=== PATIENT | male | born 1995 | race Caucasian/White ===

== ENCOUNTER 2017-11-03 05:00 | Emergency (ER) | payer OTHER ==
[2017-11-03 05:06] VITALS: BP 133/87; PULSE 58; RESP 16; TEMP 97.6
[2017-11-03] MEDS ORDERED: PENICILLIN VK 500MG STARTER 4 TAB BTL PO STA (05:11)
[2017-11-03] MEDS ORDERED: Acetaminophen-Codeine 300-30mg TAB PO STA (05:11)
[2017-11-03] MEDS ORDERED: PENICILLIN V POTASSIUM 250 MG TAB PO STA (05:11)
[2017-11-03] MEDS ORDERED: IBUPROFEN 800 MG TAB PO STA (05:11)
--- NOTE | 2017-11-03 05:16 | ED ---
General Adult HPI - General Chief complaint: ENT Stated complaint: dental pain Time Seen by Provider: 11/03/17 05:11 Source: patient, RN notes reviewed, old records reviewed Mode of arrival: ambulatory Limitations: no limitations - History of Present Illness Initial comments: This is a 22-year-old male the ER for evaluation of tooth pain. Left-sided tooth pain. Left rear lower tooth pain. Patient has history of dental caries and abscesses. Patient states he has severe left lower tooth pain, he does grind his teeth and his sleep he does have a cavity back there and he did notice his tooth cracking. Patient denies any other complaints. No other issues. - Related Data Previous Rx's Medication Instructions Recorded Acetaminophen with Codeine 1 tab PO Q4H PRN #20 tab 11/03/17 [Tylenol w/codeine #3] Naproxen [Naprosyn] 500 mg PO Q12HR PRN #30 tab 11/03/17 Penicillin V Potassium [Pen Vee K] 500 mg PO QID #40 tablet 11/03/17 Allergies Allergy/AdvReac Type Severity Reaction Status Date / Time No Known Allergies Allergy Verified 11/03/17 05:05 Review of Systems ROS Statement: Those systems with pertinent positive or pertinent negative responses have been documented in the HPI. ROS Other: All systems not noted in ROS Statement are negative. Past Medical History Past Medical History: No Reported History History of Any Multi-Drug Resistant Organisms: None Reported Past Surgical History: Tonsillectomy Past Psychological History: No Psychological Hx Reported Smoking Status: Never smoker Past Alcohol Use History: None Reported Past Drug Use History: None Reported General Exam Limitations: no limitations General appearance: alert, in no apparent distress Head exam: Present: atraumatic, normocephalic, normal inspection Eye exam: Present: normal appearance, PERRL, EOMI. Absent: scleral icterus, conjunctival injection, periorbital swelling ENT exam: Present: normal exam, mucous membranes moist, other (Significant dental caries with left tooth fracture left lower rear) Neck exam: Present: normal inspection. Absent: tenderness, meningismus, lymphadenopathy Respiratory exam: Present: normal lung sounds bilaterally. Absent: respiratory distress, wheezes, rales, rhonchi, stridor Cardiovascular Exam: Present: regular rate, normal rhythm, normal heart sounds. Absent: systolic murmur, diastolic murmur, rubs, gallop, clicks GI/Abdominal exam: Present: soft, normal bowel sounds. Absent: distended, tenderness, guarding, rebound, rigid Extremities exam: Present: normal inspection, full ROM, normal capillary refill. Absent: tenderness, pedal edema, joint swelling, calf tenderness Back exam: Present: normal inspection Neurological exam: Present: alert, oriented X3, CN II-XII intact Psychiatric exam: Present: normal affect, normal mood Skin exam: Present: warm, dry, intact, normal color. Absent: rash Course Vital Signs 11/03/17 05:02 Temperature 97.6 F Pulse Rate 58 L Respiratory 16 Rate Blood Pressure 133/87 O2 Sat by Pulse 100 Oximetry - Reevaluation(s) Reevaluation #1: 11/03/17 05:14 Pain control Medical Decision Making - Medical Decision Making 22 male to the ER for evaluation of left lower tooth pain. Patient has dental fracture with dental pain. Patient can be discharged home Disposition Clinical Impression: Dental caries, Dental abscess Narrative: left lower rear tooth abscess Disposition: HOME SELF-CARE Condition: Good Instructions: Dental Abscess (ED) Prescriptions: Acetaminophen with Codeine [Tylenol w/codeine #3] 1 tab PO Q4H PRN #20 tab PRN Reason: Pain Naproxen [Naprosyn] 500 mg PO Q12HR PRN #30 tab PRN Reason: Pain Penicillin V Potassium [Pen Vee K] 500 mg PO QID #40 tablet Referrals: None,Stated [Primary Care Provider] - 1-2 days
== END 2017-11-03 05:25 | disposition home or self-care (01) ==
LOC: EC 05:00
DX: K02.9 Dental caries, unspecified (principal); K04.7 Periapical abscess without sinus
CPT/HCPCS: 99283

== ENCOUNTER 2019-08-10 08:47 | Emergency (ER) | payer OTHER ==
[2019-08-10 08:55] VITALS: TEMP 98.4
--- NOTE | 2019-08-10 09:05 | ED ---
Upper Extremity HPI - General Chief Complaint: Extremity Injury, Upper Stated Complaint: IHS-Swollen hand Time Seen by Provider: 08/10/19 08:59 Source: patient, RN notes reviewed, old records reviewed Mode of arrival: ambulatory Limitations: no limitations - History of Present Illness Initial Comments: Patient is a 24-year-old male presents emergency department today with chief complaint of right hand pain. Patient reports that he smashed his right hand between holding apart and a holding rack at work last night. Patient reports that he has pain over the fifth metaherbal. Patient reports he has normal sensation. He does report some bruising noted at this time. Patient is right- handed.Patient denies any recent fever, chills, shortness of breath, chest pain, back pain, abdominal pain, nausea vomiting, numbness or tingling, dysuria or hematuria, constipation or diarrhea, headaches or visual changes, or any other current symptoms - Related Data Previous Rx's Medication Instructions Recorded Acetaminophen with Codeine 1 tab PO Q4H PRN #20 tab 11/03/17 [Tylenol w/codeine #3] Naproxen [Naprosyn] 500 mg PO Q12HR PRN #30 tab 11/03/17 Penicillin V Potassium [Pen Vee K] 500 mg PO QID #40 tablet 11/03/17 Ibuprofen [Motrin] 600 mg PO Q8HR PRN #30 tab 08/10/19 Allergies Allergy/AdvReac Type Severity Reaction Status Date / Time No Known Allergies Allergy Verified 11/03/17 05:05 Review of Systems ROS Statement: Those systems with pertinent positive or pertinent negative responses have been documented in the HPI. ROS Other: All systems not noted in ROS Statement are negative. Past Medical History Past Medical History: No Reported History History of Any Multi-Drug Resistant Organisms: None Reported, MRSA Date of last positivie culture/infection: L arm MDRO Source:: 2006 Past Surgical History: Tonsillectomy Past Psychological History: No Psychological Hx Reported Smoking Status: Never smoker Past Alcohol Use History: Occasional Past Drug Use History: None Reported General Exam - General Exam Comments Initial Comments: Pleasant 24-year-old male. No significant distress. Limitations: no limitations General appearance: alert, in no apparent distress Head exam: Present: atraumatic, normocephalic, normal inspection Eye exam: Present: normal appearance ENT exam: Present: normal exam, mucous membranes moist Neck exam: Present: normal inspection. Absent: tenderness, meningismus, lymphadenopathy Respiratory exam: Present: normal lung sounds bilaterally. Absent: respiratory distress, wheezes, rales, rhonchi, stridor Cardiovascular Exam: Present: regular rate GI/Abdominal exam: Present: soft, normal bowel sounds. Absent: distended, t enderness, guarding, rebound, rigid Right Forearm Wrist exam: Present: normal inspection, full ROM Hand Wrist exam: Present: full ROM, tenderness, swelling (Tenderness and swelling over the distal fifth metacarpal. Full range of motion of the fifth digit.), ecchymosis (Over distal fifth metacarpal.). Absent: normal inspection Neuro motor exam: Present: wrist extension intact, thumb opposition intact, thumb IP flexion intact, thumb adduction intact, fingers 2-5 abduction intact Vascular: Present: normal capillary refill Psychiatric exam: Present: normal affect, normal mood Skin exam: Present: warm, dry, intact, normal color. Absent: rash Course Vital Signs 08/10/19 08:51 Temperature 98.4 F Pulse Rate 66 Respiratory 18 Rate Blood Pressure 125/74 O2 Sat by Pulse 100 Oximetry Procedures - Orthopedic Splinting/Casting Injury #1 Side: right Upper Extremity Injury Location: hand Upper Extremity Immobilizer: Chase wrap Medical Decision Making - Medical Decision Making 24-year-old male presents today for evaluation for right hand injury last night at work. He has swelling and redness and contusion over the right fifth metacarpal. He does have full range of motion sensation in the finger and hand. At this time patient's x-ray of the hand was reviewed and negative for any acute process. No fracture. Discussed likely contusion and sprain. Discussed Patient can have Chase wrap is inflammatory medicine for pain. Discussed following up with orthosis symptoms continue to persist. All questions were answered and return parameters were discussed. - Radiology Data Radiology results: report reviewed X-rays negative for any acute osseous lesion. This was read by Dr. Marrero. Disposition Clinical Impression: Hand contusion Disposition: HOME SELF-CARE Condition: Good Instructions (If sedation given, give patient instructions): Hand Sprain (ED) Additional Instructions: Please use medication as discussed. Please follow up with family doctor if symptoms have not improved over the next two days. Please return to the emergency room if your symptoms increase or worsen or for any other concerns. Prescriptions: Ibuprofen [Motrin] 600 mg PO Q8HR PRN #30 tab PRN Reason: Pain Is patient prescribed a controlled substance at d/c from ED?: No Referrals: None,Stated [Primary Care Provider] - 1-2 days Omar Carrero DO [Doctor of Osteopathic Medicine] - 1-2 days Time of Disposition: 09:38
--- NOTE | 2019-08-10 09:25 | XR ---
EXAMINATION TYPE: XR hand complete RT , 3 VIEWS DATE OF EXAM ORDERED: 08/10/2019 HISTORY: pain. COMPARISON: None. FINDINGS: No fracture, dislocation or other acute osseous lesion is seen. IMPRESSION: NO ACUTE OSSEOUS LESION.
[2019-08-10 09:49] VITALS: BP 124/74; PULSE 72; RESP 16
== END 2019-08-10 09:49 | disposition home or self-care (01) ==
LOC: EC 08:47
DX: S60.221A Contusion of right hand, initial encounter (principal); W23.0XXA Caught, crushed, jammed, or pinched between moving objects, initial encounter; Y92.69 Other specified industrial and construction area as the place of occurrence of the external cause; Y99.0 Civilian activity done for income or pay
CPT/HCPCS: 99284

== ENCOUNTER → 2019-08-16 | Outpatient (CLI) | payer OTHER ==
--- NOTE | 2019-08-16 15:04 | XR ---
EXAMINATION TYPE: XR hand complete RT DATE OF EXAM: 08/16/2019 CLINICAL HISTORY: Right hand pain fifth metacarpal phalangeal joint with week ago. TECHNIQUE: Frontal, lateral and oblique images of the right hand are obtained. COMPARISON: 08/10/2019 FINDINGS: There is no acute fracture/dislocation evident in the right hand. The joint spaces in the right hand appear within normal limits. Focal soft tissue swelling is seen over the fifth metacarpal. IMPRESSION: Focal soft tissue swelling over the fifth metacarpal the right hand with no acute fractur e or dislocation in the right hand.
== END | disposition home or self-care (01) ==
LOC: RADXRMAIN 14:40
PROVIDERS: ATTEND Emergency Medicine
DX: S60.221A Contusion of right hand, initial encounter (principal)

== ENCOUNTER → 2023-07-20 | Outpatient (CLI) | payer OTHER ==
--- NOTE | 2023-07-20 16:48 | XR ---
EXAMINATION TYPE: XR finger RT DATE OF EXAM: 07/20/2023 4:00 PM CLINICAL INDICATION:Male, 28 years old with history of S62.60D,S67.196D; [facility] COMPARISON: None TECHNIQUE: XR finger RTFrontal, lateral and oblique views were obtained. FINDINGS/IMPRESSION: Tuft fracture of the right fifth digit distal phalanx with minimal displacement. Mild comminution. Th ere is associated soft tissue swelling.
== END | disposition home or self-care (01) ==
LOC: RADXRMAIN 15:42
PROVIDERS: ATTEND Emergency Medicine
DX: S62.606D Fracture of unspecified phalanx of right little finger, subsequent encounter for fracture with routine healing (principal); S67.196D Crushing injury of right little finger, subsequent encounter

== ENCOUNTER 2024-03-06 17:56 | Emergency (ER) | payer OTHER ==
--- NOTE | 2024-03-06 18:46 | XR ---
EXAMINATION TYPE: XR hand complete LT DATE OF EXAM: 03/06/2024 6:42 PM INDICATION: Patient age:Male; 28 years old; Reason for study: crush injury; [facility]. COMPARISON: None TECHNIQUE: Frontal, lateral and oblique views of the left hand were obtained. FINDINGS: Normal alignment of the visualized joints. Negative ulnar variance. No acute osseous pathol ogy is identified. No evidence of soft tissue swelling. No radiopaque foreign bodies. IMPRESSION: No acute osseous pathology.
--- NOTE | 2024-03-06 18:50 | ED ---
General Adult HPI - General Chief complaint: Extremity Injury, Upper Stated complaint: L Hand Injury Time Seen by Provider: 03/06/24 18:14 Source: patient, RN notes reviewed, old records reviewed Mode of arrival: ambulatory Limitations: no limitations - History of Present Illness Initial comments: 28-year-old male with left hand injury. Patient was at work, he cart weighing approximately 10 to 12 pounds fell onto the left hand, base of the fifth digit. No other injury reported. - Related Data Previous Rx's Medication Instructions Recorded Acetaminophen with Codeine 1 tab PO Q4H PRN #20 tab 11/03/17 [Tylenol w/codeine #3] Naproxen [Naprosyn] 500 mg PO Q12HR PRN #30 tab 11/03/17 Penicillin V Potassium [Pen Vee K] 500 mg PO QID #40 tablet 11/03/17 Ibuprofen [Motrin] 600 mg PO Q8HR PRN #30 tab 08/10/19 Allergies Allergy/AdvReac Type Severity Reaction Status Date / Time No Known Allergies Allergy Verified 11/03/17 05:05 Review of Systems ROS Statement: Those systems with pertinent positive or pertinent negative responses have been documented in the HPI. ROS Other: All systems not noted in ROS Statement are negative. Past Medical History Past Medical History: No Reported History History of Any Multi-Drug Resistant Organisms: None Reported, MRSA Date of last positivie culture/infection: L arm MDRO Source:: 2006 Past Surgical History: Tonsillectomy Past Psychological History: No Psychological Hx Reported Smoking Status: Never smoker Past Alcohol Use History: Occasional Past Drug Use History: None Reported General Exam Limitations: no limitations General appearance: alert, in no apparent distress Head exam: Present: atraumatic, normocephalic Eye exam: Present: normal appearance, PERRL Neck exam: Present: normal inspection. Absent: tenderness, meningismus Respiratory exam: Present: normal lung sounds bilaterally. Absent: respiratory distress, wheezes Cardiovascular Exam: Present: regular rate, normal rhythm GI/Abdominal exam: Absent: distended Extremities exam: Present: other (Superficial abrasion at the base of the left fifth digit, normal cap refill, normal range of motion, minimal soft tissue swelling) Neurological exam: Present: alert, oriented X3 Psychiatric exam: Present: normal affect, normal mood Course Vital Signs 03/06/24 17:58 Temperature 97.4 F L Pulse Rate 61 Respiratory 16 Rate Blood Pressure 122/81 O2 Sat by Pulse 95 Oximetry Medical Decision Making - Medical Decision Making Was pt. sent in by a medical professional or institution (JOVAN Lyon, MANAGER PRINTING, urgent care, hospital, or [place] [facility] facility...) When possible be specific @ -No Did you speak to anyone other than the patient for history (EMS, parent, family, police, friend...)? What history was obtained from this source @ -No Did you review nursing and triage notes (agree or disagree)? Why? @ -I reviewed and agree with nursing and triage notes Were old charts reviewed (outside hosp., previous admission, EMS record, old EKG , old radiological studies, urgent care reports/EKG's, [place] [facility] records)? Report findings @ -No old charts were reviewed Differential Diagnosis fracture, dislocation, crush injury EKG interpreted by me (3pts min.). @ -As above X-rays interpreted by me (1pt min.). @X-ray of the left hand is negative for acute bony abnormality CT interpreted by me (1pt min.). @ -None done U/S interpreted by me (1pt. min.). @ -None done What testing was considered but not performed or refused? (CT, X-rays, U/S, labs)? Why? @ -None What meds were considered but not given or refused? Why? @ -None Did you discuss the management of the patient with other professionals (professionals i.e. JOVAN Lyon, MANAGER PRINTING, lab, RT, psych nurse, social services technician, burnt lime drawer, teacher, youth probation officer, casework supervisor)? Give summary @ -No Was smoking cessation discussed for >3mins.? @ -No Was critical care preformed (if so, how long)? @ -No Were there social determinants of health that impacted care today? How? (Homelessness, low income, unemployed, alcoholism, drug addiction, transportation, low edu. Level, literacy, decrease access to med. care, residential, rehab)? @ -No Was there de-escalation of care discussed even if they declined (Discuss DNR or withdrawal of care, Hospice)? DNR status @ -No What co-morbidities impacted this encounter? (DM, HTN, Smoking, COPD, CAD, Cancer, CVA, ARF, Chemo, Hep., AIDS, mental health diagnosis, sleep apnea, morbid obesity)? @ -None Was patient admitted / discharged? Hospital course, mention meds given and route, prescriptions, significant lab abnormalities, going to OR and other pertinent info. @ -28-year-old male with injury to the left hand, minimal abrasion on exam. X- ray negative for bony abnormality. Patient has normal range of motion, normal cap refill. He will take Tylenol Motrin for pain. Undiagnosed new problem with uncertain prognosis? @ -No Drug Therapy requiring intensive monitoring for toxicity (Heparin, Nitro, Insulin, Cardizem)? @ -No Were any procedures done? @ -No Diagnosis/symptom? @ -Hand contusion and abrasion Acute, or Chronic, or Acute on Chronic? @ -Acute Uncomplicated (without systemic symptoms) or Complicated (systemic symptoms)? @ -Default Side effects of treatment? @ -No Exacerbation, Progression, or Severe Exacerbation? @ -No Poses a threat to life or bodily function? How? (Chest pain, [place], [place], pneumonia, PE, COPD, DKA, ARF, appy, cholecystitis, CVA, Diverticulitis, Homicidal, Suicidal, threat to staff... and all critical care pts) @ -No Disposition Clinical Impression: Hand contusion Disposition: HOME SELF-CARE Instructions (If sedation given, give patient instructions): Contusion in Adults (ED) Is patient prescribed a controlled substance at d/c from ED?: No Referrals: None,Stated [Primary Care Provider] - 1-2 days Time of Disposition: 18:50
[2024-03-06 19:20] VITALS: BP 127/86; PULSE 70; RESP 18; TEMP 97.8
== END 2024-03-06 19:18 | disposition home or self-care (01) ==
LOC: EC 17:56
DX: S60.222A Contusion of left hand, initial encounter (principal); X50.0XXA Overexertion from strenuous movement or load, initial encounter
CPT/HCPCS: 99283

== ENCOUNTER 2025-03-20 18:37 | Emergency (ER) | payer OTHER ==
--- NOTE | 2025-03-20 18:56 | ED ---
Wound/Laceration HPI - General Chief Complaint: Wound/Laceration Stated Complaint: IHS-L hand lac Time Seen by Provider: 03/20/25 18:46 Source: patient, RN notes reviewed Mode of arrival: ambulatory Limitations: no limitations - History of Present Illness Initial Comments: 29-year-old male presenting to the emergency department with a laceration to the distal left first digit. Patient states that he was at work when he excellently pinched his digit between 2 metal baskets. States that this injury occurred at 1630 this afternoon and was urged by his employer to report for further evaluation. Patient denies paresthesias or loss of range of motion. Last tetanus vaccination was within the last 5 years. - Related Data Previous Rx's Medication Instructions Recorded Acetaminophen with Codeine 1 tab PO Q4H PRN #20 tab 11/03/17 [Tylenol w/codeine #3] Penicillin V Potassium [Pen Vee K] 500 mg PO QID #40 tablet 11/03/17 RX: Naproxen [Naprosyn] 500 mg PO Q12HR PRN #30 tab 11/03/17 Ibuprofen [Motrin] 600 mg PO Q8HR PRN #30 tab 08/10/19 Allergies Allergy/AdvReac Type Severity Reaction Status Date / Time No Known Allergies Allergy Verified 03/20/25 18:42 Review of Systems ROS Statement: Those systems with pertinent positive or pertinent negative responses have been documented in the HPI. ROS Other: All systems not noted in ROS Statement are negative. Past Medical History Past Medical History: No Reported History History of Any Multi-Drug Resistant Organisms: None Reported, MRSA Date of last positivie culture/infection: L arm MDRO Source:: 2006 Past Surgical History: Tonsillectomy Past Psychological History: No Psychological Hx Reported Smoking Status: Never smoker Past Alcohol Use History: Occasional Past Drug Use History: None Reported General Exam Limitations: no limitations General appearance: alert, in no apparent distress ENT exam: Present: normal exam, mucous membranes moist Neck exam: Present: normal inspection. Absent: tenderness, meningismus, lymphadenopathy Respiratory exam: Present: normal lung sounds bilaterally. Absent: respiratory distress, wheezes, rales, rhonchi, stridor Cardiovascular Exam: Present: regular rate, normal rhythm, normal heart sounds. Absent: systolic murmur, diastolic murmur, rubs, gallop, clicks GI/Abdominal exam: Present: soft, normal bowel sounds. Absent: distended, tenderness, guarding, rebound, rigid Left Hand Wrist exam: Present: laceration (Distal left first digit skin avulsion, bleeding controlled.) Neuro motor exam: Present: wrist extension intact, thumb opposition intact Vascular: Present: normal capillary refill, radial pulse (2+). Absent: vascular compromise Skin exam: Present: warm, dry, intact, normal color. Absent: rash Course Vital Signs 03/20/25 18:38 Temperature 97.6 F Pulse Rate 61 Respiratory 17 Rate Blood Pressure 111/73 O2 Sat by Pulse 99 Oximetry Medical Decision Making - Medical Decision Making Was pt. sent in by a medical professional or institution (, JOVAN, LINUX SUPPORT ENGINEER, urgent care, hospital, or snf...) When possible be specific @ -No Did you speak to anyone other than the patient for history (EMS, parent, family, police, friend...)? What history was obtained from this source @ -No Did you review nursing and triage notes (agree or disagree)? Why? @ -I reviewed and agree with nursing and triage notes Were old charts reviewed (outside hosp., previous admission, EMS record, old EKG, old radiological studies, urgent care reports/EKG's, snf records)? Report findings @ -No old charts were reviewed Differential Diagnosis (chest pain, altered mental status, abdominal pain women, abdominal pain men, vaginal bleeding, weakness, fever, dyspnea, syncope, headache, dizziness, GI bleed, back pain, seizure, CVA, palpatations, mental health, musculoskeletal)? @ -Laceration, skin avulsion, finger sprain, this list is not all inclusive EKG interpreted by me (3pts min.). @ -None X-rays interpreted by me (1pt min.). @ -None done CT interpreted by me (1pt min.). @ -None done U/S interpreted by me (1pt. min.). @ -None done What testing was considered but not performed or refused? (CT, X-rays, U/S, labs)? Why? @ -None What meds were considered but not given or refused? Why? @ -None Did you discuss the management of the patient with other professionals (professionals i.e. , JOVAN, LINUX SUPPORT ENGINEER, lab, RT, psych nurse, social media content specialist, electric plater, teacher, education officer, outpatient case manager)? Give summary @ -No Was smoking cessation discussed for >3mins.? @ -No Was critical care preformed (if so, how long)? @ -No Were there social determinants of health that impacted care today? How? (Homelessness, low income, unemployed, alcoholism, drug addiction, transportation, low edu. Level, literacy, decrease access to med. care, fpc, rehab)? @ -No Was there de-escalation of care discussed even if they declined (Discuss DNR or withdrawal of care, Hospice)? DNR status @ -No What co-morbidities impacted this encounter? (DM, HTN, Smoking, COPD, CAD, Cancer, CVA, ARF, Chemo, Hep., AIDS, mental health diagnosis, sleep apnea, morbid obesity)? @ -None Was patient admitted / discharged? Hospital course, mention meds given and route, prescriptions, significant lab abnormalities, going to OR and other pertinent info. @ -Discharge. 29-year-old male presenting with a injury to the distal left first digit. There is a minor skin avulsion. Bleeding is controlled. Area/wound was soaked in sterile water and Betadine solution. Wound care discussed at bedside. Stable for discharge. Case discussed with Dr. Easton Undiagnosed new problem with uncertain prognosis? @ -No Drug Therapy requiring intensive monitoring for toxicity (Heparin, Nitro, Insulin, Cardizem)? @ -No Were any procedures done? @ -No Diagnosis/symptom? @ -skin avulsion Acute, or Chronic, or Acute on Chronic? @ -acute Uncomplicated (without systemic symptoms) or Complicated (systemic symptoms)? @ -uncomplicated Side effects of treatment? @ -No Exacerbation, Progression, or Severe Exacerbation? @ -No Poses a threat to life or bodily function? How? (Chest pain, [place], [place], pneumonia, PE, COPD, DKA, ARF, appy, cholecystitis, CVA, Diverticulitis, Homicidal, Suicidal, threat to staff... and all critical care pts) @ -No Disposition Clinical Impression: Skin avulsion Disposition: HOME SELF-CARE Condition: Stable Instructions (If sedation given, give patient instructions): Skin Avulsion (ED) Additional Instructions: Please return to the Emergency Department if symptoms worsen or any other concerns. Is patient prescribed a controlled substance at d/c from ED?: No Referrals: None,Stated [Primary Care Provider] - 1-2 days Time of Disposition: 18:55
[2025-03-20 19:24] VITALS: BP 117/86; PULSE 60; RESP 16; TEMP 98
== END 2025-03-20 19:22 | disposition home or self-care (01) ==
LOC: EC 18:37
DX: S61.012A Laceration without foreign body of left thumb without damage to nail, initial encounter (principal); W23.1XXA Caught, crushed, jammed, or pinched between stationary objects, initial encounter; Y99.0 Civilian activity done for income or pay
CPT/HCPCS: 99282